=== PATIENT | male | born 1955 | race Caucasian/White ===

== ENCOUNTER 2020-12-29 06:51 | Emergency (ER) | payer BC ==
[~2020-12-29] VITALS: Ht 180.3 cm; Wt 83.2 kg
[~2020-12-29 06:51] MED LIST: CIPRO 500MG TA500 MG PO; FLOMAX 0.40.4 MG/CAP PO; PERCOCET 325 MG1 TA2 PO; ZOFRAN ODT4 MG PO
[2020-12-29 06:58] VITALS: TEMP 98
[2020-12-29 07:23] LABS: BASO % 0.2 % (0.0-2.0); EOS # 0.1 (0.0-0.7); EOS % 1.5 % (0-4.0); GRAN # 7.6 (1.4-6.5); GRAN % 83.8 % (42.2-75.2); HEMATOCRIT 49.2 % (42.0-52.0); HEMOGLOBIN 16.5 g/dl (13.5-18.0); LYMPH # 0.9 (1.2-3.4); LYMPH % 9.9 % (20.0-51.0); MEAN CELL VOLUME 92 fl (80.0-100.0); MEAN CORPUSCULAR HEMOGLOBIN 31 pg (27.0-31.0); MEAN CORPUSCULAR HGB CONC 34 g/dl (33.0-37.0); MEAN PLATELET VOLUME 10.7 fl (7.4-10.4); MONO # 0.4 (0.1-0.6); MONO % 4.3 % (1.7-9.3); PLATELET COUNT 169 K/mm3 (130-400); RED BLOOD COUNT 5.36 M/mm3 (4.20-5.60); REDCELL DISTRIBUTION WIDTH-CV 12.8 % (11.5-14.5)
[2020-12-29 08:04] LABS: ALBUMIN 3.8 gm/dL (3.5-5.0); BILIRUBIN,TOTAL 0.7 mg/dL (0.0-1.0); CALCIUM 8.3 mg/dL (8.4-10.2); CREATININE, serum 0.95 (0.66-1.25); POTASSIUM 4.3 mmol/L (3.4-5.0); TOTAL PROTEIN 6.6 gm/dL (6.4-8.2)
[2020-12-29 08:12] LABS: COLLECTION METHOD CLEAN CATCH
[2020-12-29 08:32] LABS: MUCOUS Present /lpf; PH 5 (5-8); SQUAMOUS EPITHELIAL None Seen /hpf; URINE APPEARANCE Cloudy; URINE BACTERIA Occasional /hpf; URINE BILIRUBIN Negative (NEGATIVE); URINE BLOOD 3+ (NEGATIVE); URINE COLOR Amber; URINE GLUCOSE Negative (NEGATIVE); URINE KETONE Negative (NEGATIVE); URINE LEUKOCYTE ESTERASE Negative (NEGATIVE); URINE NITRATE Negative (NEGATIVE); URINE PROTEIN(semi-quant) 2+ (NEGATIVE); URINE RBC >50 /hpf; URINE UROBILINOGEN Negative (NEGATIVE)
[2020-12-29] MEDS ORDERED: CEFTIN500 MG PO (10:12)
[2020-12-29 10:22] VITALS: BP 145/84; PULSE 61
== END 2020-12-29 10:22 | disposition home or self-care (01) ==
LOC: COL.ER 06:51
PROVIDERS: Emergency Medicine
DX: N13.2 Hydronephrosis with renal and ureteral calculous obstruction (principal); N39.0 Urinary tract infection, site not specified; I10 Essential (primary) hypertension; N40.0 Benign prostatic hyperplasia without lower urinary tract symptoms; Z98.890 Other specified postprocedural states; Z79.899 Other long term (current) drug therapy
CPT/HCPCS: J0696; J1885; J3010; J7030; Q9967

== ENCOUNTER 2022-01-07 16:03 | Day surgery (SDC) | payer BC ==
[~2022-01-07] VITALS: Ht 180.3 cm; Wt 87.4 kg
[~2022-01-07 16:03] MED LIST changes: +CEFTIN500 MG PO
[2022-01-07] MEDS ORDERED: MAXALT10 MG PO (16:54)
[2022-01-07] MEDS ORDERED: FLOMAX 0.40.4 MG/CAP PO (16:54)
[2022-01-07] MEDS ORDERED: TENORMIN 5050 MG/TAB PO (16:55)
[2022-01-07] MEDS ORDERED: LIPITOR 40MG TA40 MG PO (16:55)
[2022-01-07] MEDS ORDERED: FLEXERIL 1010 MG/TAB PO (16:55)
[2022-01-07 16:56] VITALS: BP 145/73; PULSE 66; TEMP 98
--- NOTE | 2022-01-07 17:04 | NUR ---
PATIENT COMPLAINING OF LEFT FLANK PAIN, RATING PAIN 6/10. PRN PAIN MEDICATION GIVEN PER MAR
[2022-01-07] MEDS ORDERED: NORCO 325 MG-51 TAB PO (19:23)
[2022-01-07] MEDS ORDERED: PYRIDIUM 100MG100 MG PO (19:23)
[2022-01-07 21:34] VITALS: BP 150/71; PULSE 69; TEMP 98.6
[2022-01-07 22:19] VITALS: BP 144/67; PULSE 77; TEMP 98.6
--- NOTE | 2022-01-07 22:19 | NUR ---
PATIENT UP TO ROOM 350 ALERT AND ORIENTED. DENYING PAIN. VSS. VOIDED 250 OF BLOODY URINE WITH MINIMAL DISCOMFORT. TOLERATED PO FOOD AND FLUID. IV TO R HAND DISCONTINUED FOR DISCHARGE, BANDAID APPLIED. DISCHARGE TEACHING COMPLETED, PAPERWORK SIGNED. DISCHARGED AT 2205 VIA WHEELCHAIR TO HOME WITH FAMILY. CRITERIA MET.
== END 2022-01-07 22:05 | disposition home or self-care (01) ==
LOC: SDCO 16:03 → SURG 20:55 → SDCO 22:05
DX: N20.1 Calculus of ureter (principal)
CPT/HCPCS: OP; C1769; C2617; J0690; J1100; J1885; J2270; J2405; J2704; J3010; J7030; Q9967

== ENCOUNTER → 2022-10-01 | Outpatient (CLI) | payer MEDICARE, OTHER ==
[~2022-10-01] MED LIST changes: +FLEXERIL 1010 MG/TAB PO; +LIPITOR 40MG TA40 MG PO; +MAXALT10 MG PO; +NORCO 325 MG-51 TAB PO; +PYRIDIUM 100MG100 MG PO; +TENORMIN 5050 MG/TAB PO
== END ==
LOC: COL.RAD 11:58
DX: N28.1 Cyst of kidney, acquired (principal); K76.89 Other specified diseases of liver; K86.2 Cyst of pancreas
CPT/HCPCS: Q9967

== ENCOUNTER 2023-05-13 10:24 | Day surgery (SDC) | payer MEDICARE, OTHER ==
[~2023-05-13] VITALS: Ht 180.3 cm; Wt 92.0 kg
[2023-05-13 11:02] VITALS: BP 149/80; PULSE 57; TEMP 97.7
[2023-05-13] MEDS ORDERED: ZYLOPRIM 300MG300 MG PO (11:06)
[2023-05-13] MEDS ORDERED: DESYREL 50MG50 MG PO (11:07)
[2023-05-13] MEDS ORDERED: VITAMINC1000TA (11:08)
[2023-05-13] MEDS ORDERED: MAGNESIUM500 MG PO (11:08)
[2023-05-13] MEDS ORDERED: TURMERIC500 MG PO (11:09)
[2023-05-13] MEDS ORDERED: SAW PALMETTO S450 MG PO (11:10)
[2023-05-13] MEDS ORDERED: THE MEDICINE S200 M2 PO (11:10)
[2023-05-13] MEDS ORDERED: NATURAL POTASS595 MG (11:10)
[2023-05-13 11:34] LABS: BASO % 0.5 % (0.0-2.0); EOS # 0.1 K/mm3 (0.0-0.7); EOS % 2.5 % (0.0-4.0); GRAN % 71.7 % (42.2-75.2); HEMATOCRIT 48.3 % (42.0-52.0); MEAN CELL VOLUME 93 fl (80.0-100.0); MEAN CORPUSCULAR HEMOGLOBIN 31 pg (27-31); MEAN CORPUSCULAR HGB CONC 33 g/dl (33.0-37.0); MEAN PLATELET VOLUME 9.9 fl (7.4-10.4); MONO # 0.4 K/mm3 (0.1-0.6); MONO % 6.9 % (1.7-9.3); PLATELET COUNT 175 K/mm3 (130-400); RED BLOOD COUNT 5.19 M/mm3 (4.20-5.60); REDCELL DISTRIBUTION WIDTH-CV 12.7 % (11.5-14.5)
[2023-05-13 11:47] LABS: CALCIUM 9.5 mg/dL (8.4-10.2); CREATININE, serum 0.98 mg/dL (0.72-1.25); POTASSIUM 4.7 mmol/L (3.5-4.5)
--- NOTE | 2023-05-13 11:49 | NUR ---
PATIENT AMBULATED TO BAY 1 WITH STEADY GAIT. ALERT AND ORIENTED X4. PATIENT STATED UNDERSTANDING OF PROCEDURE. CONSENTS SIGNED. ASSESSMENT COMPLETED. RT IN TO PERFORM EKG. RADIOLOGY IN TO PERFORM CHEST X-RAY. 20G IV STARTED IN LEFT FOREARM. GOOD BLOOD RETURN NOTED. CBC AND BMP OBTAINED AND SENT TO LAB. WARM BLANKET PROVIDED. NO FURTHER NEEDS NOTED. RESTING IN COT. CALL LIGHT IN REACH. AT BEDSIDE.
[2023-05-13] MEDS ORDERED: MOTRIN 600600 MG/TAB PO (12:49)
[2023-05-13] MEDS ORDERED: NORCO 325 MG-51 TAB PO (12:49)
[2023-05-13 17:25] VITALS: BP 139/77; PULSE 78; TEMP 97.9
[2023-05-13 17:40] VITALS: BP 127/73; PULSE 78
[2023-05-13 17:55] VITALS: BP 130/79; PULSE 84
[2023-05-13 18:10] VITALS: BP 127/68; PULSE 84
--- NOTE | 2023-05-13 18:45 | NUR ---
1725 RETURNS TO ROOM 1 PER CART. AWAKE, ALERT. RESP UNLABORED HOB ELEVATED 30 DEGREES. VITAL SIGNS OBTAINED. ABD ROUNDED, SLIGHTLY FIRM WITH GENTLE PALPATION. INCISIONS X 3 SITES INTACT WITHOUT REDNESS OR DRAINAGE. SCOTAL SUPPORT ON. PATIENT EXPRESSES PRESENCE OF "GAS DISCOMFORT". CALL LIGHT AT SIDE. IN ROOM 1730 DR. MONTERO HERE TO VISIT WITH PATIENT. ABD FIRMNESS REPORTED. NO ORDERS 1745 REPOSITIONS SELF ON CART WITH MINIMAL ASSIST. HOB ELEVATED 60 DEGREES. 1800 AWAKE, ALERT. TOLERATES PO WATER, SODA, AND ICE CREAM WITHOUT NAUSEA. 1820 DISCHARGE INSTRUCTIONS REVIEWED. PATIENT AND VERBALIZE UNDERSTANDING. COPY PROVIDED IN DISCHARGE FOLDER 1835 SITS ON EDGE OF CART. MINIMAL ASSISTANCE. DRESSES WITH ASSIST FROM , THEN AMBULATES TO BATHROOM WITH STANDBY ASSIST, REPORTS VOIDED WITHOUT DIFFICULTY. REPORTS DECREASED ABD DISCOMFORT "GAS PAIN" AFTER MOVING
== END 2023-05-13 18:45 | disposition home or self-care (01) ==
LOC: SDCO 10:24
PROVIDERS: Surgery
DX: K42.9 Umbilical hernia without obstruction or gangrene (principal); K40.20 Bilateral inguinal hernia, without obstruction or gangrene, not specified as recurrent; D17.6 Benign lipomatous neoplasm of spermatic cord; I10 Essential (primary) hypertension; Z79.899 Other long term (current) drug therapy
CPT/HCPCS: C1781; J0360; J0690; J1100; J1170; J1200; J1885; J2405; J2704; J3010; J7120